=== PATIENT | male | born 1985 | race African-American/Black ===

== ENCOUNTER 2018-03-18 21:42 | Observation (INO) ==
[2018-03-18] MEDS ORDERED: ONDANSETRON 4 MG/2 ML VIAL IV STA (22:25)
[2018-03-18] MEDS ORDERED: ALBUTEROL/IPRATROPIUM 3 ML NEB RESP TX STA (22:25)
[2018-03-18] MEDS ORDERED: cefTRIAXone 1,000 MG in SODIUM CHLORIDE 0.9% 100 ML IV STA (22:25)
[2018-03-18] MEDS ORDERED: methylPREDNISolone SOD SUC 125 MG/2 ML VIAL IV STA (22:25)
[2018-03-18 23:09] LABS: Basophils % 0.3 % (0.0-0.8); Eosinophils # 0.2 10*3/uL (0.0-0.87); Eosinophils % 2.3 % (0.00-10.9); Hemoglobin 11.1 GM/DL (14.0-18.0); Immature Granulocytes % 0.5 %; Immature Granulocytes Absolute 0.04 #; Lymphocytes # 2.6 10*3/uL (1.4-4.0); Lymphocytes % 34.9 % (21.2-54.2); Mean Corpuscular HGB Conc 29.6 GM/DL (32-36); Mean Corpuscular Hemoglobin 30 PG (27-34); Mean Corpuscular Volume 100.8 FL (87-102); Mean Platelet Volume 9.4 FL (9.6-12.0); Monocytes # 0.9 10*3/uL (0.11-0.8); Monocytes % 11.6 % (1.7-12.7); NRBC # 0.02 10*3/uL; Neutrophils # 3.8 10*3/uL (1.4-7.4); Neutrophils % 50.4 % (38.7-73.9); Platelet Count 175 T/CUMM (130-400); Red Blood Count 3.72 MC/CUMM (3.8-5.5); Red Cell Distribution Width 21.9 % (9.3-17.3); White Blood Count 7.5 T/CUMM (4-12)
[2018-03-18 23:30] LABS: Lactic Acid 2.1 MMOL/L (0.4-2.0)
[2018-03-18] MEDS ORDERED: PIPERACILLIN/TAZOBACTAM 3,375 MG in SODIUM CHLORIDE 0.9% 100 ML IV SCH (23:30)
[2018-03-18 23:31] LABS: Alanine Aminotransferase 38 U/L (16-61); Alkaline Phosphatase 90 U/L (45-117); Amylase 139 U/L (25-115); Aspartate Amino Transferase 28 U/L (0-37); Blood Urea Nitrogen 30 MG/DL (7-18); Calcium 8.5 MG/DL (8.5-10.1); Glucose 102 MG/DL (74-106); Osmolality,Calculated 273.2 MOS/KG (273-304); Potassium 4.3 MMOL/L (3.5-5.1); Sodium 134 MMOL/L (136-145); Total Protein 11.5 G/DL (6.4-8.3); Troponin I < 0.015 NG/ML (0.00-0.045)
[2018-03-18 23:32] LABS: INR 1.5; PT Patient Result 15.8 SECS
[2018-03-19] MEDS ORDERED: MORPHINE 4 MG/1 ML VIAL IV STA (00:03)
[2018-03-19] MEDS ORDERED: ONDANSETRON 4 MG/2 ML VIAL IV PRN (03:37)
[2018-03-19] MEDS ORDERED: PROMETHAZINE 25 MG/1 ML VIAL IM PRN (03:37)
[2018-03-19] MEDS ORDERED: cefTRIAXone 1,000 MG in SYRINGE 1 EACH IV SCH (03:37)
[2018-03-19] MEDS ORDERED: MAGNESIUM SULF RIDER 2 GM in PREMIX 1 EACH IV PRN (03:37)
[2018-03-19] MEDS ORDERED: MORPHINE 4 MG/1 ML VIAL IV PRN (03:37)
[2018-03-19] MEDS ORDERED: ACETAMINOPHEN 325 MG TABLET PO PRN (03:37)
[2018-03-19] MEDS ORDERED: diphenhydrAMINE CAP 25 MG CAPSULE PO PRN (03:37)
[2018-03-19] MEDS ORDERED: NICOTINE 21 MG/24 HR PATCH TRANSDERM PRN (03:37)
[2018-03-19] MEDS ORDERED: MAGNESIUM SULF RIDER 4 GM in PREMIX 1 EACH IV PRN (03:37)
[2018-03-19] MEDS ORDERED: AZITHROMYCIN INJ 500 MG in SODIUM CHLORIDE 0.9% 250 ML IV SCH (04:00)
[2018-03-19] MEDS: ALBUTEROL/IPRATROPIUM 3 ML NEB RESP TX SCH ×2 (04:04→07:52)
[2018-03-19 06:58] LABS: Basophils % 0.2 % (0.0-0.8); Eosinophils % 0.2 % (0.00-10.9); Hematocrit 35.4 VOL% (42.0-52.0); Hemoglobin 10.5 GM/DL (14.0-18.0); Immature Granulocytes % 0.9 %; Immature Granulocytes Absolute 0.05 #; Lymphocytes # 1.5 10*3/uL (1.4-4.0); Lymphocytes % 28.5 % (21.2-54.2); Mean Corpuscular HGB Conc 29.7 GM/DL (32-36); Mean Corpuscular Hemoglobin 30 PG (27-34); Mean Corpuscular Volume 101.7 FL (87-102); Mean Platelet Volume 10.2 FL (9.6-12.0); Monocytes # 0.1 10*3/uL (0.11-0.8); Monocytes % 1.5 % (1.7-12.7); NRBC # 0.04 10*3/uL; Neutrophils # 3.7 10*3/uL (1.4-7.4); Neutrophils % 68.7 % (38.7-73.9); Platelet Count 169 T/CUMM (130-400); Red Blood Count 3.48 MC/CUMM (3.8-5.5); Red Cell Distribution Width 21.6 % (9.3-17.3); White Blood Count 5.4 T/CUMM (4-12)
[2018-03-19 07:18] LABS: Albumin 2.9 G/DL (3.4-5.0); Bilirubin,Total 0.5 MG/DL (0.2-1.0); Calcium 8.6 MG/DL (8.5-10.1); Osmolality,Calculated 279.2 MOS/KG (273-304); Potassium 4.9 MMOL/L (3.5-5.1); Total Protein 11.1 G/DL (6.4-8.3)
[2018-03-19] MEDS ORDERED: hydrOXYzine HCL 25 MG TABLET PO PRN (07:30)
[2018-03-19] MEDS ORDERED: CALCIUM CARBONATE CHEW 500 MG TABLET PO SCH (07:30)
[2018-03-19] MEDS ORDERED: LIDOCAINE/PRILOCAINE CREAM 5 GM TUBE TOP PRN (07:30)
[2018-03-19] MEDS ORDERED: ALBUTEROL 2.5 MG/3 ML NEB RESP TX PRN (07:30)
[2018-03-19] MEDS ORDERED: predniSONE 20 MG TABLET PO PRN (07:30)
[2018-03-19 07:40] LABS: Hypochromasia 1+; Lymphocytes 27 % (20-55); Nucleated Red Blood Cells 1 (0-5); Ovalocytes Slight; Platelet Estimate Adequate; Segmented Neutrophils 66 % (50-85); Total Cells Counted 100
[2018-03-19] MEDS ORDERED: DARUNAVIR ETHANOLATE 600 MG PO SCH (08:00)
[2018-03-19] MEDS ORDERED: CINACALCET 30 MG TABLET PO SCH (09:00)
[2018-03-19] MEDS ORDERED: BUDESONIDE/FORMOTEROL 160-4.5 INHALER 6 GM INH SCH (09:00)
[2018-03-19] MEDS ORDERED: RALTEGRAVIR 400 MG TABLET PO SCH (09:00)
[2018-03-19] MEDS ORDERED: ALLOPURINOL 100 MG TABLET PO SCH (09:00)
[2018-03-19] MEDS ORDERED: RITONAVIR 100 MG PO SCH ×2 (09:00)
[2018-03-19] MEDS ORDERED: CALCITRIOL 0.5 MCG CAPSULE PO SCH (09:00)
[2018-03-19] MEDS ORDERED: ABACAVIR 300 MG TABLET PO SCH ×2 (09:00)
[2018-03-19] MEDS ORDERED: PANTOPRAZOLE 40 MG TABLET PO SCH ×2 (09:00)
[2018-03-19] MEDS ORDERED: OXcarbazepine 300 MG TABLET PO SCH (09:00)
[2018-03-19] MEDS ORDERED: SERTRALINE 50 MG TABLET PO SCH (09:00)
[2018-03-19 10:30] VITALS: BP 123/71
[2018-03-19] MEDS ORDERED: methylPREDNISolone SOD SUC 40 MG/1 ML VIAL IV SCH (11:00)
[2018-03-19] MEDS ORDERED: ALPRAZolam 0.5 MG TABLET PO SCH (21:00)
[2018-03-19] MEDS ORDERED: CARVEDILOL 3.125 MG TABLET PO SCH (21:00)
[2018-03-19] MEDS ORDERED: GABAPENTIN 300 MG CAPSULE PO SCH (21:00)
[2018-03-20] MEDS ORDERED: LEVOTHYROXINE 125 MCG TABLET PO SCH (07:00)
== END 2018-03-19 10:59 | disposition home or self-care (01) ==
LOC: EDUNIT# → EDBD → N.EDINP 21:42 → N.ED 21:42 → N.5E 03-19 02:50
PROVIDERS: ADMIT Internal Medicine Geriatric Medicine; ATTEND Internal Medicine Geriatric Medicine

== ENCOUNTER 2019-03-23 22:28 | Observation (INO) ==
[2019-03-23] MEDS ORDERED: MORPHINE 4 MG/1 ML VIAL IV STA (23:18)
[2019-03-23] MEDS ORDERED: ALUM/MAG/SIMETH/LIDO VISC 1:1 30 ML BOTTLE PO STA (23:18)
[2019-03-23] MEDS ORDERED: ASPIRIN 325 MG TABLET PO STA (23:18)
[2019-03-23] MEDS ORDERED: ONDANSETRON 4 MG/2 ML VIAL IV STA (23:18)
[2019-03-23 23:34] LABS: Basophils % 0.5 % (0.0-0.8); Eosinophils # 0.1 10*3/uL (0.0-0.87); Eosinophils % 1.4 % (0.00-10.9); Hematocrit 36.7 VOL% (42.0-52.0); Hemoglobin 11.2 GM/DL (14.0-18.0); Immature Granulocytes % 0.5 %; Immature Granulocytes Absolute 0.03 #; Lymphocytes # 2.2 10*3/uL (1.4-4.0); Lymphocytes % 32.9 % (21.2-54.2); Mean Corpuscular HGB Conc 30.5 GM/DL (32-36); Mean Corpuscular Volume 111.2 FL (87-102); Mean Platelet Volume 10.9 FL (9.6-12.0); Monocytes % 14.1 % (1.7-12.7); NRBC # 0.03 10*3/uL; Neutrophils % 50.6 % (38.7-73.9); Platelet Count 172 T/CUMM (130-400); Red Cell Distribution Width 16.5 % (9.3-17.3); White Blood Count 6.7 T/CUMM (4-12)
[2019-03-23 23:38] LABS: INR 1.1; PT Patient Result 11.5 SECS (9.6-12.2)
[2019-03-23 23:54] LABS: Alanine Aminotransferase 56 U/L (16-61); Albumin 3.4 G/DL (3.4-5.0); Alkaline Phosphatase 160 U/L (45-117); Amylase 92 U/L (25-115); Aspartate Amino Transferase 41 U/L (0-37); Bilirubin,Total < 0.39 MG/DL (0.2-1.0); Blood Urea Nitrogen 34 MG/DL (7-18); Estimated Glom Filtration Rate 11 ML/MIN; Glucose 102 MG/DL (74-106); Osmolality,Calculated 284.5 MOS/KG (273-304); Total Protein 8.3 G/DL (6.4-8.3)
[2019-03-24] MEDS ORDERED: DEXTROSE 50% 25 GM/50 ML VIAL IV PRN (03:44)
[2019-03-24] MEDS ORDERED: GLUCAGON 1 MG VIAL IM PRN (03:44)
[2019-03-24] MEDS ORDERED: DICYCLOMINE 10 MG CAPSULE PO PRN (03:44)
[2019-03-24 04:08] LABS: Risk Ratio 4.63; VLDL CHOLESTEROL 55.4 MG/DL
[2019-03-24] MEDS: MORPHINE 4 MG/1 ML VIAL IV PRN ×3 (06:10→20:00)
[2019-03-24] MEDS: ONDANSETRON 4 MG/2 ML VIAL IV PRN ×2 (06:16→20:01)
[2019-03-24] MEDS: INSULIN REGULAR 100 UNIT/ML SUBCUT SCH ×4 (08:40→20:25)
[2019-03-24] MEDS: ACETAMINOPHEN 325 MG TABLET PO SCH ×3 (08:56→20:21)
[2019-03-24] MEDS: ASPIRIN EC 81 MG TABLET PO SCH (11:28)
[2019-03-24 12:12] LABS: Troponin I < 0.015 NG/ML (0.00-0.045)
[2019-03-24] MEDS ORDERED: HEPARIN 10,000 UNIT/10 ML VIAL IV ONE (16:30)
[2019-03-24] MEDS: WARFARIN 5 MG TABLET PO SCH (18:11)
[2019-03-24] MEDS: HEPARIN 10,000 UNIT/10 ML VIAL IV SCH ×2 (18:31→20:17)
[2019-03-24] MEDS ORDERED: ATORVASTATIN 20 MG TABLET PO SCH (21:00)
[2019-03-25 05:26] LABS: INR 1.1; PT Patient Result 12.4 SECS (9.6-12.2)
[2019-03-25 07:27] LABS: Basophils % 0.7 % (0.0-0.8); Eosinophils # 0.1 10*3/uL (0.0-0.87); Eosinophils % 3.1 % (0.00-10.9); Hematocrit 36.2 VOL% (42.0-52.0); Hemoglobin 11.1 GM/DL (14.0-18.0); Immature Granulocytes % 0.2 %; Immature Granulocytes Absolute 0.01 #; Lymphocytes # 1.4 10*3/uL (1.4-4.0); Lymphocytes % 34.1 % (21.2-54.2); Mean Corpuscular HGB Conc 30.7 GM/DL (32-36); Mean Corpuscular Volume 110.7 FL (87-102); Monocytes % 15.7 % (1.7-12.7); Neutrophils % 46.2 % (38.7-73.9); Platelet Count 147 T/CUMM (130-400); Red Blood Count 3.27 MC/CUMM (3.8-5.5); Red Cell Distribution Width 16.5 % (9.3-17.3); White Blood Count 4.1 T/CUMM (4-12)
[2019-03-25 07:52] LABS: Calcium 8.1 MG/DL (8.5-10.1); Osmolality,Calculated 280.7 MOS/KG (273-304)
[2019-03-25 07:54] LABS: Eosinophils 4 % (0-10); Hypochromasia 1+; Lymphocytes 27 % (20-55); Nucleated Red Blood Cells 2 (0-5); Platelet Estimate Adequate; Segmented Neutrophils 56 % (50-85); Total Cells Counted 100
[2019-03-25] MEDS: INSULIN REGULAR 100 UNIT/ML SUBCUT SCH ×4 (08:43→20:56)
[2019-03-25] MEDS: ASPIRIN EC 81 MG TABLET PO SCH (08:44)
[2019-03-25] MEDS: ACETAMINOPHEN 325 MG TABLET PO SCH ×3 (08:44→22:07)
[2019-03-25] MEDS ORDERED: ALBUTEROL 2.5 MG/3 ML NEB RESP TX PRN (11:33)
[2019-03-25] MEDS ORDERED: hydrOXYzine HCL 25 MG TABLET PO PRN (11:33)
[2019-03-25] MEDS ORDERED: PROMETHAZINE 25 MG TABLET PO PRN (11:33)
[2019-03-25] MEDS ORDERED: LIDOCAINE/PRILOCAINE CREAM 5 GM TUBE TOP PRN (11:33)
[2019-03-25] MEDS ORDERED: predniSONE 20 MG TABLET PO PRN (11:33)
[2019-03-25] MEDS ORDERED: WARFARIN 3 MG TABLET PO ONE (13:08)
[2019-03-25] MEDS: HYDROCORTISONE 10 MG TABLET PO SCH (14:29)
[2019-03-25] MEDS: ONDANSETRON 4 MG/2 ML VIAL IV PRN ×2 (14:38→22:16)
[2019-03-25] MEDS: PANTOPRAZOLE 40 MG TABLET PO SCH (14:48)
[2019-03-25] MEDS ORDERED: CALCIUM CARBONATE CHEW 500 MG TABLET PO SCH (16:30)
[2019-03-25] MEDS ORDERED: DARUNAVIR ETHANOLATE 600 MG PO SCH (17:00)
[2019-03-25] MEDS: WARFARIN 5 MG TABLET PO SCH (18:19)
[2019-03-25] MEDS ORDERED: ALPRAZolam 0.5 MG TABLET PO SCH (21:00)
[2019-03-25] MEDS ORDERED: GABAPENTIN 300 MG CAPSULE PO SCH (21:00)
[2019-03-25] MEDS ORDERED: RALTEGRAVIR 400 MG TABLET PO SCH (21:00)
[2019-03-25] MEDS ORDERED: HYDROcodone/CHLORPHENIRAMINE ER 5 ML UDCUP PO SCH (21:00)
[2019-03-25] MEDS ORDERED: OXCARBAZEPINE 150 MG PO SCH (21:00)
[2019-03-25] MEDS ORDERED: ABACAVIR 300 MG PO SCH (21:00)
[2019-03-25] MEDS ORDERED: carvediloL 3.125 MG TABLET PO SCH (21:00)
[2019-03-25] MEDS ORDERED: PHENOL 1.4% THROAT SPRAY 177 ML BOTTLE PO PRN (21:37)
[2019-03-25] MEDS: OMEGA 3 ACID ETHYL ESTERS 1 GM CAPSULE PO SCH (22:07)
[2019-03-25] MEDS: BUDESONIDE/FORMOTEROL 160-4.5 INHALER 6 GM INH SCH (22:57)
[2019-03-26 05:32] LABS: Basophils % 0.5 % (0.0-0.8); Eosinophils # 0.1 10*3/uL (0.0-0.87); Eosinophils % 2.7 % (0.00-10.9); Hematocrit 36.5 VOL% (42.0-52.0); Hemoglobin 11.2 GM/DL (14.0-18.0); INR 1.2; Immature Granulocytes % 0.7 %; Immature Granulocytes Absolute 0.03 #; Lymphocytes # 1.6 10*3/uL (1.4-4.0); Mean Corpuscular HGB Conc 30.7 GM/DL (32-36); Mean Corpuscular Volume 109.9 FL (87-102); Mean Platelet Volume 11.2 FL (9.6-12.0); Monocytes % 16.5 % (1.7-12.7); Neutrophils % 44.6 % (38.7-73.9); Platelet Count 151 T/CUMM (130-400); Red Blood Count 3.32 MC/CUMM (3.8-5.5); Red Cell Distribution Width 16.2 % (9.3-17.3); White Blood Count 4.4 T/CUMM (4-12)
[2019-03-26 06:02] LABS: Hypochromasia 1+; Ovalocytes Slight; Platelet Estimate Adequate
[2019-03-26 06:09] LABS: Calcium 8.1 MG/DL (8.5-10.1); Osmolality,Calculated 276.2 MOS/KG (273-304)
[2019-03-26] MEDS ORDERED: LEVOTHYROXINE 125 MCG TABLET PO SCH (06:30)
[2019-03-26] MEDS ORDERED: GLIMEPIRIDE 2 MG TABLET PO SCH (08:00)
[2019-03-26] MEDS ORDERED: ATORVASTATIN 20 MG TABLET PO SCH (09:00)
[2019-03-26] MEDS ORDERED: CINACALCET 30 MG TABLET PO SCH (09:00)
[2019-03-26] MEDS ORDERED: ABACAVIR 300 MG PO SCH (09:00)
[2019-03-26] MEDS ORDERED: CALCITRIOL 0.5 MCG CAPSULE PO SCH (09:00)
[2019-03-26] MEDS ORDERED: NON-FORMULARY MEDICATION (Ritonavir [Norvir] 100 MG) PO SCH ×2 (09:00)
[2019-03-26] MEDS ORDERED: ALLOPURINOL 100 MG TABLET PO SCH (09:00)
[2019-03-26] MEDS ORDERED: SERTRALINE 50 MG TABLET PO SCH (09:00)
[2019-03-26] MEDS: INSULIN REGULAR 100 UNIT/ML SUBCUT SCH ×2 (09:28→12:35)
[2019-03-26] MEDS: HYDROCORTISONE 10 MG TABLET PO SCH (10:13)
[2019-03-26] MEDS: ACETAMINOPHEN 325 MG TABLET PO SCH (10:13)
[2019-03-26] MEDS: OMEGA 3 ACID ETHYL ESTERS 1 GM CAPSULE PO SCH (10:13)
[2019-03-26] MEDS: ASPIRIN EC 81 MG TABLET PO SCH (10:15)
[2019-03-26] MEDS: PANTOPRAZOLE 40 MG TABLET PO SCH (10:15)
[2019-03-26] MEDS: BUDESONIDE/FORMOTEROL 160-4.5 INHALER 6 GM INH SCH (10:19)
[2019-03-26 11:35] VITALS: BP 114/60
[2019-03-26] MEDS: ONDANSETRON 4 MG/2 ML VIAL IV PRN (13:22)
[2019-03-29 09:02] LABS: % CD4 (T Cells) 14 % (32-64); % CD8 (T Cells) 61 % (15-40); 4/8 Ratio 0.2 (>=0.9)
== END 2019-03-26 19:30 | disposition home or self-care (01) ==
LOC: EDUNIT# → N.EDINP 22:28 → N.ED 22:28 → INTOOBSV 03-24 02:39 → OBSVTOIN 03-24 02:39 → N.2W 03-24 03:11 → N.5E 03-24 18:12
PROVIDERS: ADMIT Internal Medicine; ATTEND Internal Medicine